=== PATIENT | female | born 1975 | race American Indian/Alaskan Native ===

== ENCOUNTER 2023-08-15 08:31 | Outpatient (CLI) | payer MEDICAID | END 2023-08-15 23:59 | disposition home or self-care (01) | LOC: MRI 08:31 | PROVIDERS: ATTEND Physician Assistant Medical | DX: M47.817 Spondylosis without myelopathy or radiculopathy, lumbosacral region (principal); M48.07 Spinal stenosis, lumbosacral region; M43.17 Spondylolisthesis, lumbosacral region; M25.48 Effusion, other site | CPT/HCPCS: 72148 ==

== ENCOUNTER 2023-11-08 13:38 | Emergency (ER) | payer MEDICAID ==
[~2023-11-08] VITALS: Ht 157.5 cm; Wt 73.0 kg
[2023-11-08 13:41] VITALS: BP 159/107; PULSE 105; RESP 18; TEMP 98.4; O2SAT 98
[2023-11-08] MEDS ORDERED: gabapentin 400mg capsule PO ONE (14:42)
== END 2023-11-08 18:06 | disposition left against medical advice (07) ==
LOC: ER 13:38
DX: R20.0 Anesthesia of skin (principal); M79.632 Pain in left forearm; Z53.21 Procedure and treatment not carried out due to patient leaving prior to being seen by health care provider

== ENCOUNTER → 2023-12-14 | Outpatient (CLI) | payer MEDICAID | END | disposition home or self-care (01) | LOC: MRI 12-12 07:31 | PROVIDERS: ATTEND Nurse Practitioner | DX: M47.812 Spondylosis without myelopathy or radiculopathy, cervical region (principal); M99.61 Osseous and subluxation stenosis of intervertebral foramina of cervical region; M43.12 Spondylolisthesis, cervical region; M50.31 Other cervical disc degeneration, high cervical region; M48.02 Spinal stenosis, cervical region | CPT/HCPCS: 72141 ==